=== PATIENT | female | born 1975 | race Caucasian/White ===

== ENCOUNTER → 2023-12-13 13:23 | Outpatient (REF) | payer OTHER, SELFPAY | LOC: WDC 13:23 | PROVIDERS: ATTENDING PHYSICIAN Obstetrics & Gynecology; FAMILY PHYSICIAN Family Medicine | DX: Z12.31 Encounter for screening mammogram for malignant neoplasm of breast (principal) | CPT/HCPCS: 77063; 77067 ==

== ENCOUNTER → 2024-12-16 13:12 | Outpatient (REF) | payer OTHER, SELFPAY | LOC: WDC 13:12 | PROVIDERS: ATTENDING PHYSICIAN Obstetrics & Gynecology; FAMILY PHYSICIAN Family Medicine | DX: Z12.31 Encounter for screening mammogram for malignant neoplasm of breast (principal) | CPT/HCPCS: 77063; 77067 ==

== ENCOUNTER → 2025-08-25 13:50 | Outpatient (REF) | payer OTHER, SELFPAY | LOC: WDC 13:50 | PROVIDERS: ATTENDING PHYSICIAN Family Medicine | DX: R92.333 Mammographic heterogeneous density, bilateral breasts (principal) | CPT/HCPCS: 76641 ==